=== PATIENT | male | born 1940 | race Two or more races ===

== ENCOUNTER → 2016-09-28 | Outpatient (CLI) | payer MEDICARE, OTHER ==
[~2016-09-28] MED LIST: APRESOLINE-DPS50 MG PO; CARDURA DPS8 MG PO; CARVEDILOL25 MG PO; CATAPRES-DPS0.1 MG PO; COLCHICINE0.6 M1 PO; HUMALOG, N100 UNITS/ SQ; IMBRUVICA140 MG PO; LASIX DPS40 MG PO; LEVEMIR100 UNIT/1 SQ; NIACIN50 MG PO; NORVASC DPS10 MG PO; PRAVACHOL10 MG PO; SYNTHROID DP0.125 MG PO; VITAMIN D50000 UNIT PO; XARELTO15 MG PO
== END | disposition home or self-care (01) ==
LOC: RAD.S 15:00
DX: R22.1 Localized swelling, mass and lump, neck (principal); I10 Essential (primary) hypertension; M47.812 Spondylosis without myelopathy or radiculopathy, cervical region; Z85.6 Personal history of leukemia

== ENCOUNTER 2016-10-19 07:26 | Day surgery (SDC) | payer MEDICARE, OTHER ==
[~2016-10-19] VITALS: Ht 170.2 cm; Wt 108.3 kg
== END 2016-10-19 10:26 | disposition home or self-care (01) ==
LOC: RAD.S 07:26
DX: K86.9 Disease of pancreas, unspecified (principal); C91.10 Chronic lymphocytic leukemia of B-cell type not having achieved remission; I10 Essential (primary) hypertension

== ENCOUNTER 2016-10-27 07:45 | Day surgery (SDC) | payer MEDICARE, OTHER ==
[~2016-10-27] VITALS: Ht 170.2 cm; Wt 106.3 kg
== END 2016-10-27 11:28 | disposition home or self-care (01) ==
LOC: RAD.S 07:45 → EDSTATUS 08:00 → RAD.S 08:00
PROC: 0KB Muscles, Excision (ICD-10-PCS; principal; 2016-10-27)
PROC: 0JB83ZX Excision of Abdomen Subcutaneous Tissue and Fascia, Percutaneous Approach, Diagnostic (ICD-10-PCS; principal; 2016-10-27)
DX: D13.6 Benign neoplasm of pancreas (principal); C91.10 Chronic lymphocytic leukemia of B-cell type not having achieved remission; I10 Essential (primary) hypertension; Z79.82 Long term (current) use of aspirin; Z79.899 Other long term (current) drug therapy